=== PATIENT | female | born 1945 | race Hispanic/Latino ===

== ENCOUNTER 2021-12-27 09:40 | Emergency (ER) | payer MEDICARE, MEDICAID, SELFPAY ==
--- NOTE | ~2021-12-27 | CT_ITS ---
EXAMINATION: CT brain wo con DATE: 12/27/2021 11:03 INDICATION: Dizziness. TECHNIQUE: Computed tomography (CT) of the head was performed without intravenous contrast. The mA wa s adjusted according to patient size. Iterative reconstruction technique was employed. The dose-lengt h product was 605.33 mGy-cm. COMPARISON: None FINDINGS: There are scattered areas of low attenuation in the cerebral white matter, which is within normal limits for the patient's age. There is no intracranial hemorrhage, acute infarction, or abnorm al intracranial mass lesion. The ventricles are normal in size. The orbits are normal. There is mild mucosal thickening in the paranasal sinuses. The mastoid air cells are normal. IMPRESSION: 1. Normal aging brain. Reviewed, dictated and finalized at location A. IMPRESSION: 1. Normal aging brain.
[2021-12-27 09:43] VITALS: BP 176/89; PULSE 64; RESP 16; TEMP 36.8; O2SAT 99
--- NOTE | 2021-12-27 09:52 | ECG_ITS ---
Measurements Intervals [place] Rate: 61 P: 30 AK: 248 QRS: -8 QRSD: 102 T: 29 QT: 401 QTc: 405 Interpretive Statements SINUS RHYTHM WITH FIRST DEGREE AV BLOCK LOW QRS VOLTAGE IN PRECORDIAL LEADS ABNORMAL ECG NO PREVIOUS ECG AVAILABLE FOR COMPARISON Electronically Signed On 12-27-2021 11:48:51 CDT by Olaf Molina D.O.
[2021-12-27 10:15] LABS: Basophils Percent Auto 0.7 % (0.2-1.2); Eosinophils Absolute Auto 0.2 K/mm3 (0-0.3); Eosinophils Percent Auto 3.4 % (0-4.4); Hematocrit 38.8 % (37.0-47.0); Hemoglobin 12.1 g/dL (12.0-15.0); Immature Granulocyte Absolute 0.04 K/mm3 (0.00-0.031); Immature Granulocyte Percent A 0.7 % (0-0.5); Lymphocytes Absolute Auto 1.56 K/mm3 (0.9-3.2); Lymphocytes Percent Auto 28.3 % (18.3-44.2); Mean Corpuscular HGB Conc 31.2 g/dl (32-36); Mean Corpuscular Volume 96.3 fl (80-100); Mean Platelet Volume 9.7 fl (7.4-10.4); Monocytes Absolute Auto 0.5 K/mm3 (0.1-0.6); Monocytes Percent Auto 9.3 % (2.6-8.5); Neutrophils Absolute Auto 3.2 K/mm3 (1.3-6.7); Neutrophils Percent Auto 57.6 % (45.5-73.1); Platelet Count Result 224 k/mm3 (150-375); Red Blood Count 4.03 M/mm3 (4.2-5.4); Red Cell Distribution Width 13.7 % (11.5-14.5); White Blood Count 5.5 K/mm3 (4.5-10.0)
--- NOTE | 2021-12-27 10:33 | ED.GENADULT ---
HPI - General Adult General Chief complaint: Recheck/Abnormal Lab/Rx Stated complaint: high bp Time Seen by Provider: 12/27/21 10:17 History of Present Illness HPI narrative: 76-year-old Haitian-speaking female with a history of hypertension presents to the emergency room for evaluation of dizziness that has been present since yesterday. Patient states the dizziness is worse when moving her head. Denies any nausea or vomiting. Patient is also complaining of occasional blurred vision and ringing in her ears. Patient denies any focal neuro deficits, unilateral weakness or difficulty speaking. Patient remarks she has noticed elevated blood pressure reading for the past couple of days. No changes to her hypertension dosing. Denies chest pain, shortness of breath or abdominal pain. Related Data Home Medications Medication Instructions Recorded Confirmed allopurinol 300 mg tablet 150 mg PO DAILY 12/27/21 atorvastatin 10 mg tablet mg 12/27/21 carvedilol 25 mg tablet mg 12/27/21 telmisartan 80 tablet 12/27/21 mg-hydrochlorothiazide 25 mg tablet Allergies Allergy/AdvReac Type Severity Reaction Status Date / Time No Known Allergies Allergy Unverified 12/27/21 09:49 Review of Systems Review of Systems: CONSTITUTIONAL: Denies fever, chills, or sweats. EYES: Denies visual changes, redness, or discharge. ENT: Denies rhinorrhea, congestion, sore throat, or otalgia. CARDIOVASCULAR: Denies chest pain, palpitations, or edema. RESPIRATORY: Denies cough or dyspnea. GASTROINTESTINAL: Denies abdominal pain, nausea, vomiting, or diarrhea. GENITOURINARY: Denies dysuria or hematuria. SKIN: Denies rash or itching. MUSCULOSKELETAL: Denies back pain, joint pain, or myalgia. NEUROLOGIC: Reports dizziness PSYCHIATRIC: Denies anxiety or depression. Exam Narrative: GENERAL: Well-appearing, well-nourished, no physical limitations, and in no acute distress. HEAD: Normocephalic, atraumatic. EYES: Conjunctivae normal, PERRLA and EOMI. ENT: External nose normal, Nares clear, no rhinorrhea or epistaxis. Mucous membranes moist. Oropharynx without tonsillar hypertrophy exudate or other lesions. External ears normal, bilateral TMs normal bilaterally NECK: Supple. No meningeal signs. CHEST: Clear to auscultation. No respiratory distress. No wheezes rales or rhonchi. HEART: Regular rate and rhythm. No murmur heard. Normal peripheral pulses. ABDOMEN: Soft, suprapubic tenderness, nondistended, normal active bowel sounds. BACK: No CVA tenderness; No cervical/thoracic/lumbar tenderness, step-offs, bony abnormality; FROM EXTREMITIES: Normal range of motion. No edema. No clubbing or cyanosis SKIN: Warm, dry, no rash. No noted wounds NEURO: No focal deficits. Alert and oriented x3. MAEW. CN's II-XI intact bilaterally, normal gait PSYCH: Cooperative. Normal mood and affect. Course Vital Signs Vital signs: Vital Signs Temperature 36.8 C 12/27/21 09:43 Pulse Rate 64 12/27/21 09:43 Respiratory Rate 16 12/27/21 09:43 Blood Pressure 176/89 H 12/27/21 09:43 Pulse Oximetry 99 12/27/21 09:43 Oxygen Delivery Room Air 12/27/21 09:43 Temperature 36.8 C 12/27/21 09:43 Pulse Rate 72 12/27/21 12:03 Respiratory Rate 20 12/27/21 12:03 Blood Pressure 146/79 H 12/27/21 12:03 Pulse Oximetry 99 12/27/21 12:03 Oxygen Delivery Room Air 12/27/21 09:43 Medical Decision Making MDM Narrative Medical decision making narrative: 76-year-old female presented the emergency room with sudden onset of dizziness began yesterday. Patient was also complaining of suprapubic tenderness. CBC and CMP were reassuring. CT scan showed no acute intracranial abnormalities. Patient was given a 10 mg of hydralazine and states that her dizziness resolved. UA shows evidence of urinary tract infection. Patient was given IV Rocephin and will send home with Keflex. Because of her dizziness could be from her acute cystitis. Will have patient fol
[2021-12-27 10:37] LABS: Appearance Urine Slightly Cloudy (Clear); Bilirubin Urine Negative (Negative); Glucose Urine UA Negative (Negative); Ketones Urine Negative (Negative); Leukocyte Esterase Ur 2+ LEU/UL (Negative); Nitrate Urine Negative (Negative); Protein Urine Negative (Negative); Urobilinogen Urine 0.2 mg/dL (<2.0)
[2021-12-27 10:40] LABS: Add Urine Microscopic? YES; Blood Urine Trace-intact (Negative); Color Urine Light Yellow (Yellow)
[2021-12-27 10:41] LABS: Alanine Aminotransferase 15 U/L (6-35); Albumin Level 4.2 g/dL (3.5-5.1); Alkaline Phosphatase 65 U/L (38-126); Anion Gap 10 mmol/L (8-16); Aspartate Amino Transferase 21 U/L (14-36); Bilirubin,Total 0.5 mg/dL (0.2-1.3); Blood Urea Nitrogen 22 mg/dL (7-17); Calcium 10.3 mg/dL (8.4-10.2); Carbon Dioxide 29 mmol/L (22-30); Chloride 101 mmol/L (98-107); Estimated CRCL calculation 51 ml/min; Estimated Glomerular Filt Rate > 60; Glucose 104 mg/dL (65-110); Potassium 4.5 mmol/L (3.4-5.0); Sodium 140 mmol/L (137-145)
[2021-12-27 10:43] LABS: Bacteria Urine Trace /hpf; Mucus Urine Rare /lpf; Squamous Epithelial Cell Urine Many /hpf (Few); Transitional Epi Cells Urine Rare /hpf (None Seen); WBC Urine 21-30 /hpf
--- NOTE | 2021-12-27 10:45 | PC.NURSE ---
pt. to CT.
[2021-12-27 10:58] LABS: Troponin I < 0.012 ng/mL (0.000-0.034)
[2021-12-27] MEDS: hydrALAZINE HCL 20 MG/ML VIAL 10 MG IV PUSH (11:05)
[2021-12-27 11:23] VITALS: BP 139/75; PULSE 66; RESP 19; O2SAT 100
[2021-12-27 12:03] VITALS: BP 146/79; PULSE 72; RESP 20; O2SAT 99
== END 2021-12-27 12:41 | disposition home or self-care (01) ==
PROVIDERS: Emergency Medicine; Emergency Provider Nurse Practitioner Family; PCP Registered Nurse
DX: N39.0 Urinary tract infection, site not specified (principal); R42 Dizziness and giddiness; I10 Essential (primary) hypertension
CPT/HCPCS: 36415; 70450; 80053; 81001; 84484; 85025; 87086; 87088; 93005; 96365; 96375; 99284; J0360; J0696

== ENCOUNTER 2022-12-20 17:21 | Emergency (ER) | payer MEDICARE, MEDICAID, SELFPAY ==
[2022-12-20 17:39] VITALS: BP 117/68; PULSE 78; RESP 16; TEMP 36.9; O2SAT 96
--- NOTE | 2022-12-20 17:46 | ED.FEMALEGU ---
HPI - Female Genitourinary General Chief complaint: Urogenital-Female Stated complaint: UTI Time Seen by Provider: 12/20/22 17:48 Source: patient and RN notes reviewed Mode of arrival: ambulatory Limitations: no limitations History of Present Illness HPI Narrative: 77-year-old female presented for complaint of burning with urination and right flank pain for 3 days. Denies n/v/d/f/c. Not taking anything for symptoms. Related Data Home Medications Medication Instructions Recorded Confirmed atorvastatin 10 mg tablet 10 mg PO DAILY 12/27/21 12/20/22 carvedilol 25 mg tablet 25 mg PO DAILY 12/27/21 12/20/22 telmisartan 80 1 tablet PO DAILY 12/27/21 12/20/22 mg-hydrochlorothiazide 25 mg tablet gabapentin 100 mg capsule 100 mg PO DIRECTED 12/20/22 12/20/22 linaclotide 145 mcg capsule 145 mcg PO DIRECTED 12/20/22 12/20/22 (Linzess) montelukast 10 mg tablet 10 mg PO DAILY 12/20/22 12/20/22 Allergies Allergy/AdvReac Type Severity Reaction Status Date / Time No Known Allergies Allergy Verified 12/20/22 17:26 Review of Systems Review of Systems: CONSTITUTIONAL: Denies body aches, fever, chills, or sweats. CARDIOVASCULAR: Denies chest pain, palpitations, or edema. RESPIRATORY: Denies cough or dyspnea. GASTROINTESTINAL: Denies abdominal pain, nausea, vomiting, or diarrhea. GENITOURINARY: Reports dysuria, frequency, urgency, flank pain SKIN: Denies rash, itching, or wounds. MUSCULOSKELETAL: Denies back pain or myalgia. [facility] Past Medical History Medical History (Updated 12/20/22 @ 20:05 by Lorin Samano APRN) Hypertension Comments At time of signature, I have reviewed and agree with nursing past medical, surgical, social and family history unless otherwise noted. Please see nursing chart for further information. There is no relevant family history pertinent to the presenting complaint Exam Narrative: GENERAL: Well-appearing and in no acute distress. ENT: Mucous membranes pink and moist. NECK: Normal AROM. Supple. CHEST: No respiratory distress. Clear to auscultation. HEART: Regular rate and rhythm. ABDOMEN: Soft, nontender, nondistended, normal active bowel sounds. right CVA tenderness SKIN: Warm, dry, no rash. NEURO: No focal deficits. Alert and oriented x3. Gait steady. PSYCH: Normal affect. Course Course Emergency Course: Patient is aware of diagnosis, understands and agrees to treatment plan. Anticipatory guidance given. Patient agrees to follow-up as directed and is aware of reasons to seek care at the emergency department. Portions of this record may have been created with voice recognition software Level of Care: Express Care Visit Vital Signs Vital signs: Vital Signs Temperature 98.5 F 12/20/22 17:39 Pulse Rate 78 12/20/22 17:39 Respiratory Rate 16 12/20/22 17:39 Blood Pressure 117/68 12/20/22 17:39 Pulse Oximetry 96 12/20/22 17:39 Oxygen Delivery Room Air 12/20/22 17:39 Temperature 98.5 F 12/20/22 17:39 Pulse Rate 78 12/20/22 17:39 Respiratory Rate 16 12/20/22 17:39 Blood Pressure 117/68 12/20/22 17:39 Pulse Oximetry 96 12/20/22 17:39 Oxygen Delivery Room Air 12/20/22 17:39 Reviewed MDM - Female Genitourinary MDM Narrative Medical decision making narrative: results of urine reviewed with patient. Advised close monitoring of symptoms. Discussed physical exam findings. Advised supportive measures and signs/symptoms to go to the ER. Pt is appropriate for outpt treatment and f/u. Differential Diagnosis Differential diagnosis: Likely urinary tract infection, cystitis and other ( Nephrolithiasis, pyelonephritis) Lab Data Labs: Urine Glucose Negative Reference Range: Negative Urine Bilirubin Negative Reference Range: Negative Urine Ketone Negative
== END 2022-12-20 18:08 | disposition home or self-care (01) ==
PROVIDERS: Emergency Provider Nurse Practitioner Family; PCP Registered Nurse
DX: N39.0 Urinary tract infection, site not specified (principal); I10 Essential (primary) hypertension
CPT/HCPCS: 81003; 87077; 87086; 87088; 87186; 99213; G0463

== ENCOUNTER 2023-12-13 22:55 | Emergency (ER) | payer MEDICARE, MEDICAID, SELFPAY ==
[2023-12-13] VITALS (7 sets, daily range): BP systolic 164–174; BP diastolic 83–87; PULSE 71–76; RESP 20; TEMP 36.6; O2SAT 94–96
--- NOTE | ~2023-12-13 | XR_ITS ---
XR chest 1V Ordering provider: David De La Vega PA-C History: 78 years Female with . near syncope . Comparison: None. FINDINGS: MEDIASTINUM: The cardiac silhouette is moderately enlarged. Congestive dora. LUNGS: No effusions or pneumothorax. Opacification in the left lower lobe area which may indicate ate lectasis versus pneumonia. Clinical correlation advised. OTHER: No free air under the diaphragm. IMPRESSION: Cardiomegaly with congestive dora. Left lower lobe atelectasis versus pneumonia. Clinical correlation advised. Reviewed, dictated and finalized at location A.
--- NOTE | ~2023-12-13 | CT_ITS ---
CT abdomen pelvis wo con Ordering provider: David De La Vega PA-C History: 78 years Female with . lower abdominal pain, constipation . Comparison: None. Technique: CT abdomen and pelvis without IV and without oral contrast. Automated exposure control and iterative reconstruction technique were employed. The dose-length product was 1246.07 mGy-cm. Findings: VISUALIZED LOWER CHEST: Dependent atelectatic changes. Trace pericardial effusion. Thickening or loculated fluid seen in the left lower lobe pleura posteriorly. UPPER ABDOMINAL ORGANS: Liver: Hepatomegaly. Gallbladder: Normal. Spleen: Normal. Stomach/duodenum: Large sliding hiatus hernia Pancreas: Normal. Adrenals: Normal. Kidneys: Cysts in the left kidney midpole measuring 3.3 cm cortical calcification seen in the left ki dney lower pole. Calcification also seen in the right kidney upper pole and midpole cortex. Cyst is s een in the right kidney lower pole measuring 1.5 cm.. PELVIC ORGANS: The bladder is normal. BOWEL AND MESENTERY: Colon: No evidence of diverticulitis. Slight thickening of the sigmoid colon wall which may indicate colitis. Normal appendix. Small Bowel: Normal. No obstruction. Peritoneum/mesentery: No free air or free fluid. No mesenteric lymphadenopathy. RETROPERITONEUM: Mild atheromatous disease of the abdominal aorta. No retroperitoneal lymphadenopat hy. MUSCULOSKELETAL: Superficial soft tissues: Bilateral small fat-containing umbilical hernia. Otherwise, The superficial soft tissues are normal. Bones: Minimal anterolisthesis at the level of L4-L5. Narrowing of the disc L4-L5. Right hip severe o steoarthritic changes. Bilateral sacroiliitis. IMPRESSION: 1. Large sliding hiatus hernia. 2. Thickened wall of the sigmoid colon which may indicate colitis. 3. Hepatomegaly. 4. Constipation Reviewed, dictated and finalized at location A.
--- NOTE | 2023-12-13 23:03 | ED.DIZZY ---
HPI - Dizziness General Chief Complaint: Syncope Stated Complaint: NEAR SYNCOPE, DIAPHORETIC, PALE Source: patient Mode of arrival: ambulatory Limitations: language barrier History of Present Illness HPI Narrative: This is a 78-year-old female who is Maltese-speaking and who presents to the ED via EMS with chief complaint of near-syncope this evening. States that she stood up from a seated position this started to feel very woozy and like she might pass out. States that she did not have a full syncope and was able to lower herself to a seated position again. She continued to feel diaphoretic, nauseous and dizzy. Denies associated chest pain, shortness of breath. Denies recent illness, fevers, chills, vomiting, diarrhea. States that she has had a couple of days of constipation and some lower abdominal pain. Denies focal numbness, weakness. Reports medical history of hypertension and chronic kidney disease but nothing is listed in the chart. Denies any seizure disorder. Patient states that she has had chronic lower leg swelling and actually seems a little better today compared to normal. No history of known heart disease but has been on multiple blood pressure medications Family is here and translating. Related Data Home Medications Medication Instructions Recorded Confirmed atorvastatin 10 mg tablet 10 mg PO DAILY 12/27/21 12/20/22 carvedilol 25 mg tablet 25 mg PO DAILY 12/27/21 12/20/22 telmisartan 80 1 tablet PO DAILY 12/27/21 12/20/22 mg-hydrochlorothiazide 25 mg tablet gabapentin 100 mg capsule 100 mg PO DIRECTED 12/20/22 12/20/22 linaclotide 145 mcg capsule 145 mcg PO DIRECTED 12/20/22 12/20/22 (Linzess) montelukast 10 mg tablet 10 mg PO DAILY 12/20/22 12/20/22 Allergies Allergy/AdvReac Type Severity Reaction Status Date / Time No Known Allergies Allergy Verified 12/13/23 22:58 Review of Systems Review of Systems: All systems as dictated in HPI [facility] Past Medical History Medical History (Updated 12/14/23 @ 01:36 by David De La Vega PA-C) Hypertension Family History Family History (System 10/11/23 @ 09:14 by Yassine Su) Other Family history of arthritis Hypertension Social History Social History (System 10/11/23 @ 09:14 by Yassine Su) Smoking status: Never smoker Alcohol intake: current Exam Narrative: GENERAL: Well-appearing, well-nourished, and in no acute distress. HEAD: Normocephalic, atraumatic. EYES: PERRLA and EOMI. Bilateral ENT: Nares clear, no rhinorrhea or epistaxis. Mucous membranes moist. Oropharynx without tonsillar hypertrophy exudate or other lesions. NECK: Supple. No adenopathy or masses. CHEST: No respiratory distress. Clear to auscultation. No wheezes rales or rhonchi HEART: Regular rate and rhythm. No murmur heard. Normal peripheral pulses. ABDOMEN: Soft, mild suprapubic tenderness, nondistended, normal active bowel sounds. MSK: Normal range of motion. No edema. SKIN: Warm, dry, no rash. Facial flushing present. NEURO: Alert and oriented x4. No focal deficits. PSYCH: Normal mood and affect. Course Vital Signs Vital signs: Vital Signs Temperature 97.9 F 12/13/23 22:58 Pulse Rate 71 12/13/23 22:58 Respiratory Rate 20 12/13/23 22:58 Blood Pressure 174/83 H 12/13/23 22:58 Pulse Oximetry 96 12/13/23 22:58 Oxygen Delivery Room Air 12/13/23 22:58 Temperature 97.9 F 12/13/23 22:58 Pulse Rate 73 12/13/23 23:10 Respiratory Rate 20 12/13/23 22:58 Blood Pressure 174/83 H 12/13/23 22:58 Pulse Oximetry 96 12/13/23 22:58 Oxygen Delivery Room Air 12/13/23 22:58 MDM - Dizziness MDM Narrative Medical decision making narrative: This is a 78-year-old female with chief complaint of near syncope today after standing up. Vitals show elevated blood pressure but otherwise normal. Exam shows a little facial flushing but neurologically fully intact. There is some mild lower abdominal tenderness.
--- NOTE | 2023-12-13 23:04 | ECG_ITS ---
Test Date: 2023-12-13 23:19:56 Measurements Intervals [place] Rate: 74 P: 46 CT: 236 QRS: -21 QRSD: 94 T: 5 QT: 377 QTc: 419 Interpretive Statements SINUS RHYTHM WITH FIRST DEGREE AV BLOCK BASELINE ARTIFACT- I, II, III, AVR, AVL, AVF, V5 BORDERLINE ECG No previous ECG available for comparison Electronically Signed On 12-14-2023 06:57:40 CDT by Olaf Molina D.O.
[2023-12-13] MEDS: SODIUM CHLORIDE 0.9% IV 1,000 ML 999 ML IV CONT (23:22)
[2023-12-13] MEDS: ONDANSETRON INJ 4 MG/2 ML VIAL IV PUSH (23:23)
[2023-12-13 23:30] LABS: Basophils Absolute Auto 0.1 K/mm3 (0.0-0.1); Basophils Percent Auto 0.8 % (0.2-1.2); Eosinophils Absolute Auto 0.2 K/mm3 (0-0.3); Eosinophils Percent Auto 2.5 % (0-4.4); Hematocrit 38.2 % (37.0-47.0); Hemoglobin 11.7 g/dL (12.0-15.0); Immature Granulocyte Absolute 0.05 K/mm3 (0.00-0.031); Immature Granulocyte Percent A 0.7 % (0-0.5); Lymphocytes Absolute Auto 1.52 K/mm3 (0.9-3.2); Lymphocytes Percent Auto 20.3 % (18.3-44.2); Mean Corpuscular HGB Conc 30.6 g/dl (32-36); Mean Corpuscular Hemoglobin 27.5 pg (26-34); Mean Corpuscular Volume 89.7 fl (80-100); Mean Platelet Volume 9.6 fl (7.4-10.4); Monocytes Absolute Auto 0.9 K/mm3 (0.1-0.6); Monocytes Percent Auto 11.4 % (2.6-8.5); Neutrophils Absolute Auto 4.8 K/mm3 (1.3-6.7); Neutrophils Percent Auto 64.3 % (45.5-73.1); Platelet Count Result 229 k/mm3 (150-375); Red Blood Count 4.26 M/mm3 (4.2-5.4); Red Cell Distribution Width 14.3 % (11.5-14.5); White Blood Count 7.5 K/mm3 (4.5-10.0)
[2023-12-13 23:42] LABS: Prothrombin Time 13.3 Seconds (11.1-14.7)
[2023-12-13 23:44] LABS: Lactic Acid Reflex 1.5 mmol/L (0.7-2.0)
[2023-12-13 23:45] LABS: Alanine Aminotransferase 13 U/L (6-35); Albumin Level 4.1 g/dL (3.5-5.1); Alkaline Phosphatase 82 U/L (38-126); Anion Gap 10 mmol/L (4-12); Aspartate Amino Transferase 18 U/L (14-36); Bilirubin,Total 0.5 mg/dL (0.2-1.3); Blood Urea Nitrogen 32 mg/dL (7-17); Calcium 9.9 mg/dL (8.4-10.2); Carbon Dioxide 25 mmol/L (22-30); Chloride 101 mmol/L (98-107); Estimated CRCL calculation 39 ml/min; Estimated Glomerular Filt Rate 40; Glucose 113 mg/dL (65-110); Magnesium 1.8 mg/dL (1.6-2.3); Potassium 4.1 mmol/L (3.4-5.0); Sodium 136 mmol/L (137-145)
[2023-12-13 23:57] LABS: NT Pro B Type Natriuretic Pept 37 pg/mL (19.9-100); Troponin I < 0.012 ng/mL (0.000-0.034)
[2023-12-14] VITALS (12 sets, daily range): BP systolic 120–127; BP diastolic 70–76; PULSE 64–86; RESP 17–22; TEMP 36.6; O2SAT 93–98
[2023-12-14 01:19] LABS: Add Urine Microscopic? YES; Appearance Urine Clear (Clear); Bacteria Urine 4+ /hpf; Bilirubin Urine Negative (Negative); Blood Urine Negative (Negative); Color Urine Yellow (Yellow); Glucose Urine UA Negative (Negative); Ketones Urine Trace mg/dL (Negative); Leukocyte Esterase Ur 1+ LEU/UL (Negative); Nitrate Urine Positive (Negative); Non Pathogenic Casts 0-2; Protein Urine Negative (Negative); RBC Urine 0-2 /hpf (0-2); Specific Grav Ur 1.019 (1.001-1.035); Squamous Epithelial Cell Urine None Seen /hpf (Few); pH Urine 5.5 (5.0-9.0)
== END 2023-12-14 06:12 | disposition home or self-care (01) ==
PROVIDERS: Emergency Provider Physician Assistant; PCP Registered Nurse
DX: N39.0 Urinary tract infection, site not specified (principal); E86.0 Dehydration; R55 Syncope and collapse; N18.9 Chronic kidney disease, unspecified; I12.9 Hypertensive chronic kidney disease with stage 1 through stage 4 chronic kidney disease, or unspecified chronic kidney disease; Z79.899 Other long term (current) drug therapy; I44.0 Atrioventricular block, first degree; K44.9 Diaphragmatic hernia without obstruction or gangrene; R16.0 Hepatomegaly, not elsewhere classified; K59.00 Constipation, unspecified; R93.3 Abnormal findings on diagnostic imaging of other parts of digestive tract
CPT/HCPCS: 36415; 71045; 74176; 80053; 81001; 83605; 83735; 83880; 84484; 85025; 85610; 85730; 87077; 87086; 87088; 87186; 93005; 96361; 96365; 96375; 99284; J0696; J2405; J7030

== ENCOUNTER 2024-11-26 10:46 | Emergency (ER) | payer MEDICARE, MEDICAID, SELFPAY ==
--- NOTE | ~2024-11-26 | XR_ITS ---
XR chest 2V 11/26/2024 11:32 Indication: Lower extremity edema Procedure: 2 views of the chest Comparison: 12/13/2023 and 10/15/2015 Findings: Cardiomegaly. No focal air space disease, pulmonary edema, pleural effusion or suspected pneumothorax. Impression: 1: No acute cardiopulmonary disease. Reviewed, dictated and finalized at location O. Impression: 1: No acute cardiopulmonary disease.
[2024-11-26 11:10] VITALS: BP 139/87; PULSE 64; RESP 18; TEMP 36.7; O2SAT 95
--- OUTSIDE RECORDS SUMMARY | 2024-11-26 11:14 | XMS_ITS | Encounter Summary ---
Author Organization [facility] Address [address] [place] [address] Care Team Providers Care Administrative Associate Name Role Phone Unavailable Primary Care Provider Unavailabl e Encounter Details Date Type Department Care Team (Late st Contact Info) Description 01/13/2022 Lab Requisition [facility] [address] [place] [address] Roberto Houser MD [address] [place] [address] Social History Tobacco Use Types Packs/Day Years Used Date Smoking Tobacco: Never Assessed Comments Unknown Sex and Gender Information Value Date Recorded Sex Assigned at Not on file Legal Sex Female 3:10 PM CDT Gender Identity Not on file Sexual Orientation Not on file documented as of this encounter Plan of Treatment Not on file documented as of this encounter Procedures Procedure Name Priority Date/Time Associated Diagnosis Comments DERMATOPATHOLOGY Routine 01/11/2022 12:0 0 AM CDT documented in this encounter Results * DERMATOPATHOLOGY (01/11/2022 12:00 AM CDT) Case Report Dermatopathology Report Case: [id number] Authorizing Provider: Roberto Houser MD Collected: 01/11/2022 12:00 AM Ordering Location: [facility] Received: 01/13/2022 06:30 AM Pathologist: Lachelle Montez MD Specimen: Skin, left hand 3:29 PM CDT DERMATOPATHOLOGY LABORATORY Final Diagnosis Specimen A. SKIN, left hand: BASAL CELL CARCINOMA, NODULAR TYPE (C44.619) 2 3:29 PM CDT DERMATOPATHOLOGY LABORATORY at 1529 CDT Clinical History [facility]. Path#[id number] 2 3:29 PM CDT DERMATOPATHOLOGY LABORATORY Gross Description Specimen A: Received is one formalin filled container labeled with the patient's name and designated left hand. The specimen consists of a shave biopsy measuring 10x7x2,10x7x1, and 8x4x1 mm. Jar 0. 3:29 PM CDT DERMATOPATHOLOGY LABORATORY Microscopic Description Specimen A. SKIN, left hand: Within the dermis there are aggregates of basaloid cells with a high nuclear to cytoplasmic ratio and peripheral palisading. 2 3:29 PM CDT DERMATOPATHOLOGY LABORATORY Disclaimer An external and internal positive and negative controls are appropriate for the histochemical, immunohistochemical and immunofluorescence stain(s) in this case (if any), except where stated explicitly. The performance characteristics of the stain(s) cited in this report were developed and its performance characteristic determined by the Dermatopathology Laboratory at [facility], directed by Dr. Eric Vega. These tests need not be, and therefore are not, approved by the [place] Food and Drug Administration. The tests are used for clinical purposes. Billing Codes Specimen Charges Stain Charges 25109 1 2 3:29 PM CDT DERMATOPATHOLOGY LABORATORY Embedded Images 2 3:29 PM CDT DERMATOPATHOLOGY LABORATORY Pathology/Cytolog y TISSUE SPECIMEN FROM SKIN / Unknown 01/11/2022 01/13/2022 6:30 AM CDT us Roberto Houser MD LAB - PATHOLOGY/CYTOLOGY ORDER PATRIA Final Result DERMATOPATHOLOGY LABORATORY [facility] - Department of Dermatology [address] [place] [address], [facility] [phone] documented in this encounter Visit Diagnoses Not on filedocumented in this encounter
--- OUTSIDE RECORDS SUMMARY | 2024-11-26 11:14 | XMS_ITS | Clinical Summary ---
Author Organization [facility] Address [address] [place] [address] Care Team Providers Care Licensed Journeyman Electrician Name Role Phone Anamaria HOLMAN MD PhD, Clinton Wise Unavailable Kumar Lindsey MD Unavailable + Negin Curiel NP Primary Care Provider [phone] Allergies No known active allergies Medications atorvastatin (LIPITOR) 10 mg tablet Take 1 tablet (10 mg total) by mouth daily 03/13/2024 Active carvediloL (COREG) 25 mg tablet Take 1 tablet (25 mg total) by mouth 2 (two) times a day 03/13/2024 Active furosemide (LASIX) 20 mg tablet Take 1 tablet (20 mg total) by mouth daily Active telmisartan (MICARDIS) 80 mg tablet Take 1 tablet (80 mg total) by mouth nightly Active Active Problems Problem Noted Date Diagnosed Date Hypothyroidism 10/02/2024 Hypertensive disorder 10/02/2024 Osteoarthritis 10/02/2024 Varicose veins of other specified sites 10/03/19 25 Carotid body tumor 10/02/2024 Lumbosacral radiculopathy 11/28/2023 History of colonic polyps 04/17/2022 Chronic kidney disease 07/14/2021 Diastolic dysfunction 07/14/2021 Overview (10/02/2024): GRADE 1 per her depilatory painter in [place] Jessica Zimmer last seen 05/31/2021 Prediabetes 11/25/2020 Vitamin D deficiency 01/07/2019 Mixed hyperlipidemia 06/10/2018 Chronic constipation 06/20/2017 Encounters Date Type Department Care Team Description 10/13/2024 Telephone [facility] Oncology [facility] Floor 8 [place] [address] Demetrice Burns 10/06/2024 1:[address] [facility] Advanced Medicine Radiation Oncology [address] [facility] [place] [address] Clinton Conrad III, MD PhD Carotid body tumor (HCC) 10/02/2024 Documentation [facility] Otolaryngology Head-Neck Division [address] [place] [address] Floor 5 [place] [address] Kumar Lindsey MD 10/01/[address] [facility] Advanced Medicine Radiation Oncology [address] [place] [address] Clinton Conrad III, MD PhD 09/29/2024 Telephone [facility] Radiation Oncology [address] [place] [address] Kala, Physician 09/25/2024 2:30 PM CDT Lab [facility] - Lab Collection [address] [place] [address] Floor 5 [place] [address] Carotid body tumor (HCC) 09/25/2024 12:20 PM CDT Office Visit [facility] Otolaryngology Head-Neck Division [address] [place] [address] Floor 5 [place] [address] Kumar Lindsey MD Carotid body tumor (HCC) 09/25/2024 10:04 AM CDT - 09/25/2024 11:59 PM CDT Hospital Encounter [facility] - [facility] [address] [facility] Floor 8 [place] [address] Carotid body tumor (HCC) Discharge Disposition: Discharge to home or self care 09/25/2024 10:04 AM CDT - 09/25/2024 11:59 PM CDT Hospital Encounter [facility] - PET [address] [facility] Floor 8 [place] [address] Discharge Disposition: Discharge to home or self care 09/25/2024 9:15 AM CDT - 09/25/2024 11:59 PM CDT Hospital Encounter [facility] - PET [address] [facility] Floor 8 [place] [address] Carotid body tumor (HCC) Discharge Disposition: Discharge to home or self care 09/25/2024 Orders Only [facility] Otolaryngology Head-Neck Division [address] [place] [address] 5 [place] [address] Kumar Lindsey MD Carotid body tumor (HCC) (Primary Dx) 09/16/2024 Telephone [facility] Otolaryngology Head-Neck Division [address] [place] [address] 5 [place] [id number] Natalie Ruiz RN 09/12/2024 Orders Only [facility] Otolaryngology Head-Neck Division [address] [place] [address] 5 [place] [address] Kumar Lindsey MD Carotid body tumor (HCC) (Primary Dx) 09/10/2024 Telephone [facility] Otolaryngology [facility] [place] [address] Nayeli Jaimes, 09/03/2024 Telephone [facility] Services [address] [facility] [address] [place] [address] Micki Lopez, AZALIA from Last 3 Months Surgical History Surgery Date Site/Laterality Comments HYSTERECTOMY CYST REMOVAL Medical History Medical History Date Comments Arthritis Dizziness High blood pressure Kidney disease Social History Tobacco Use Types Packs/Day Years Used Date Smoking Tobacco: Never Smokeless Tobacco: Never Tobacco Cessation:Counseling Given: Not Answered Comments Unknown Sex and Gender Information Value Date Recorded Sex Assigned at Not on file 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 Gender Identity Not on file Sexual Orientation Not on file Obstetrics History Last Filed Vital Signs Vital Sign Reading Time Taken Comments Blood Pressure 124/80 10/06/2024 1:45 PM CDT Pulse 72 10/06/2024 1:45 PM CDT Temperature - - Respiratory Rate 16 10/06/2024 1:45 PM CDT Oxygen Saturation 94% 10/06/2024 1:45 PM CDT Inhaled Oxygen Concentration - - Weight 95.3 kg (210 lb) 10/06/2024 1:45 PM CDT Height 160 cm (5' 3) 10/06/2024 1:45 PM CDT Body Mass Index 37.2 10/06/2024 1:45 PM CDT Plan of Treatment Health Maintenance Due Date Last Done Comments Depression Screening 1945 Hepatitis C Screening 1945 Osteoporosis Screening-Bone Density Scan 1945 DTaP/Tdap/Td Vaccine (1 - Tdap) 1957 Hepatitis B Screening 1964 Pneumococcal vaccine 65+ (1 of 1 - PCV) 1996 Zoster Vaccine (1 of 2) 1996 Well Visit 65+ 07/18/2011 Influenza Vaccine (#1) 2024 Fall Risk Assessment 10/06/2025 10/06/2024 Procedures Procedure Name Priority Date/Time Associated Diagnosis Comments MISCELLANEOUS TEST SENDOUT CHEMISTRY Routine 09/25/2024 7:[address] SOFT TISSUE NECK W CONTRAST Schedule Routine, Read Routine (OP Routine) 09/25/2024 12:06 PM CDT Carotid body tumor (HCC) PET/CT GA-68 DOTATATE SKULL TO THIGH Schedule Routine, Read Routine (OP Routine) 09/25/2024 11:55 AM CDT Carotid body tumor (HCC) from Last 3 Months Results * Miscellaneous Test Sendout Chemistry (09/25/2024 7:51 PM CDT) Test name Catecholamin es, Serum Result 1 See Comment BIANKA JEAN Comment:Credited, test no lo nger available. Blood 09/25/2024 7:51 PM CDT 09/25/2024 9:04 PM CDT Kumar Lindsey MD LAB BLOOD ORDERABL ES Final Result [facility] Department [place] [address] * CT Neck Soft Tissue W Contrast (09/25/2024 12:06 PM CDT) Anatomical Region Laterality Modality Head and Neck N/A Computed Tomogra phy 09/25/2024 3:39 PM CDT Impressions 09/25/2024 4:25 PM CDT 1. Multiple avidly enhancing lesions including enhancing mass centered in the left carotid space splaying internal and external carotid arteries with cranial extension in the carotid space abutting jugular foramen as well as mass effect on the left jugular vein without thrombosis or occlusion. 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 2. Additional heterogeneously enhancing superficial left parotid gland and AP window lesions likely reflect additional neuroendocrine tumors. 3. Homogeneously enhancing prevertebral space lesion with tail extending to the posterior left thyroid gland favors ectopic thyroid tissue rather than neuroendocrine tumor. Dictated by: Jb Haddad M.D. The radiology attending physician has personally reviewed this study, and had reviewed and/or edited this written report and agrees with it. Electronically signed by: Jonathan Edwards MD Narrative 09/25/2024 4:25 PM CDT EXAMINATION: CT of the neck with contrast HISTORY: 79 years-old Female with carotid body tumor. TECHNIQUE: CT of the neck was performed according to the standard protocol with intravenous contrast. Contrast information: 67 mL Optiray-350 IV COMPARISON: Same day pet Dotatate. FINDINGS: There is a homogeneously enhancing mass centered in the left carotid space with splaying of the internal and external carotid arteries at the level of the carotid bifurcation with mass effect on the left jugular vein without occlusion. The lesion measures 4.2 x 3.6 x 3.9 cm and extends cranially through the carotid space abutting the jugular foramen. There are additional enhancing lesions including superficial left parotid gland measuring 1.1 x 0.9 x 1.3 cm, prevertebral space measuring 1.0 x 0.9 x 2.5 cm, isointense to the thyroid gland with extension to the posterior left thyroid and left AP window heterogeneously enhancing lesion measuring 3.8 x 2.3 x 2.8 cm. Scattered subcentimeter lymph nodes are seen in the neck. None are pathologically enlarged or abnormally enhancing. Dystrophic calcifications of the calcaneus and adenoid tonsils. The muscles of the neck are normal. Fascial planes are preserved and the deep spaces of the neck are normal. The visualized airway is widely patent. Limited views of the brain including the cerebellum and brainstem are normal. The limited view of the [place] is unremarkable. The visualized portions of the orbits are normal. Mild cervical spondylosis without high-grade spinal canal stenosis. Varying degrees of facet arthropathy and uncovertebral hypertrophy with associated neuroforaminal narrowing. Trace left pleural effusion. Old granulomatous disease. Procedure Note Jonathan Edwards MD - 09/25/2024 EXAMINATION: CT of the neck with contrast HISTORY: 79 years-old Female with carotid body tumor. TECHNIQUE: CT of the neck was performed according to the standard protocol with intravenous contrast. Contrast information: 67 mL Optiray-350 IV COMPARISON: Same day pet Dotatate. FINDINGS: There is a homogeneously enhancing mass centered in the left carotid space with splaying of the internal and external carotid arteries at the level of the carotid bifurcation with mass effect on the left jugular vein without occlusion. The lesion measures 4.2 x 3.6 x 3.9 cm and extends cranially through the carotid space abutting the jugular foramen. There are additional enhancing lesions including superficial left parotid gland measuring 1.1 x 0.9 x 1.3 cm, prevertebral space measuring 1.0 x 0.9 x 2.5 cm, isointense to the thyroid gland with extension to the posterior left thyroid and left AP window heterogeneously enhancing lesion measuring 3.8 x 2.3 x 2.8 cm. Scattered subcentimeter lymph nodes are seen in the neck. None are pathologically enlarged or abnormally enhancing. Dystrophic calcifications of the calcaneus and adenoid tonsils. The muscles of the neck are normal. Fascial planes are preserved and the deep spaces of the neck are normal. The visualized airway is widely patent. Limited views of the brain including the cerebellum and brainstem are normal. The limited view of the [place] is unremarkable. The visualized portions of the orbits are normal. Mild cervical spondylosis without high-grade spinal canal stenosis. Varying degrees of facet arthropathy and uncovertebral hypertrophy with associated neuroforaminal narrowing. Trace left pleural effusion. Old granulomatous disease. IMPRESSION: 1. Multiple avidly enhancing lesions including enhancing mass centered in the left carotid space splaying internal and external carotid arteries with cranial extension in the carotid space abutting jugular foramen as well as mass effect on the left jugular vein without thrombosis or occlusion. 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 2. Additional heterogeneously enhancing superficial left parotid gland and AP window lesions likely reflect additional neuroendocrine tumors. 3. Homogeneously enhancing prevertebral space lesion with tail extending to the posterior left thyroid gland favors ectopic thyroid tissue rather than neuroendocrine tumor. Dictated by: Jb Haddad M.D. The radiology attending physician has personally reviewed this study, and had reviewed and/or edited this written report and agrees with it. Electronically signed by: Jonathan Edwards MD Kumar Lindsey MD IMG CT PROCEDURES Final Result * PET/CT Dotatate Skull to Thigh (09/25/2024 11:55 AM CDT) Anatomical Region Laterality Modality Positron Emissio n Tomography (PET) 09/25/2024 2:40 PM CDT Impressions 09/25/2024 5:35 PM CDT 1. Intensely avid 3.9 cm left carotid body mass compatible with reported primary malignancy. 2. Partially necrotic moderately avid 3.4 cm aorticopulmonary window lymph node suspicious for metastasis. 3. Mildly avid left perihilar pulmonary nodule may represent an additional metastasis or atelectasis. Recommend dedicated CT chest with contrast for further evaluation. 4. No evidence of metastasis below the diaphragm. Modified Krenning score = 4 Dictated by: Kofi Abad MD The radiology attending physician has personally reviewed this study, and had reviewed and/or edited this written report and agrees with it. Electronically signed by: Elisa Baker M.D. Narrative 09/25/2024 5:35 PM CDT EXAMINATION: Cu-64 DOTATATE -PET/CT IMAGING DATE OF STUDY: 09/25/2024 SCANNER: [facility] [employer] (SQ1). This is a high-resolution scanner, which can result in higher SUVs (and even detection of previously unrecognized small lesions) compared to older scanners. RADIOPHARMACEUTICAL: 4.69 mCi Cu-64 Dotatate i.v. Injection site: Right antecubital fossa HISTORY: 79-year-old female with reported left carotid body tumor. Patient recently noticed a nontender mass in 2022, and has not been treated. The study is requested for initial staging. Initial treatment strategy. TECHNIQUE: After intravenous administration of the radiopharmaceutical, noncontrast CT images were obtained for attenuation correction and for fusion with emission PET images to allow for anatomical localization of PET findings. Emission PET images were then obtained. The study was interpreted on the [employer] workstation. The total scanned area was skull vertex to proximal thighs. Images of the body were obtained starting 60 minutes after injection of tracer. REFERENCE TISSUE MAXIMUM SUVs: Liver 10.2 Spleen 33.3 Focal Dotatate tracer uptake (visually classified on MIP images) in reference lesions on PET is graded as follows (Modified Krenning Score): 0. No uptake (Negative) 1. Uptake < liver (Minimal) 2. Uptake = liver (Mild) 3. Uptake > liver, but < spleen (Moderate) 4. Uptake > spleen (Intense) COMPARISON: Same day CT neck FINDINGS: Arising near the carotid bifurcation on the left, there is a 3.9 x 3.3 cm intensely avid mass which abuts the internal jugular vein, and causes mild mass effect upon the oropharyngeal airway. Moderately avid 3.4 x 2.1 cm aorticopulmonary window lymph node on axial image 114. There are several pulmonary nodules in the left lung. One near the left hilum (image 124) is mildly tracer avid. There is physiologic uptake within the pituitary gland, parotid and submandibular glands, stomach, small and large bowel, and bilateral kidneys. Additional CT findings: Moderate-sized hiatal hernia. Coronary artery and thoracoabdominal aortic calcifications. Multiple bilateral cysts. Colonic diverticulosis. As is severe right hip osteoarthritis. Degenerative changes in thoracolumbar spine. Small fat-containing direct left inguinal hernia. Procedure Note Elisa Baker MD - 09/25/2024 EXAMINATION: Cu-64 DOTATATE -PET/CT IMAGING DATE OF STUDY: 09/25/2024 SCANNER: [facility] [employer] (SQ1). This is a high-resolution scanner, which can result in higher SUVs (and even detection of previously unrecognized small lesions) compared to older scanners. RADIOPHARMACEUTICAL: 4.69 mCi Cu-64 Dotatate i.v. Injection site: Right antecubital fossa HISTORY: 79-year-old female with reported left carotid body tumor. Patient recently noticed a nontender mass in 2022, and has not been treated. The study is requested for initial staging. Initial treatment strategy. TECHNIQUE: After intravenous administration of the radiopharmaceutical, noncontrast CT images were obtained for attenuation correction and for fusion with emission PET images to allow for anatomical localization of PET findings. Emission PET images were then obtained. The study was interpreted on the [employer] workstation. The total scanned area was skull vertex to proximal thighs. Images of the body were obtained starting 60 minutes after injection of tracer. REFERENCE TISSUE MAXIMUM SUVs: Liver 10.2 Spleen 33.3 Focal Dotatate tracer uptake (visually classified on MIP images) in reference lesions on PET is graded as follows (Modified Krenning Score): 0. No uptake (Negative) 1. Uptake < liver (Minimal) 2. Uptake = liver (Mild) 3. Uptake > liver, but < spleen (Moderate) 4. Uptake > spleen (Intense) COMPARISON: Same day CT neck FINDINGS: Arising near the carotid bifurcation on the left, there is a 3.9 x 3.3 cm intensely avid mass which abuts the internal jugular vein, and causes mild mass effect upon the oropharyngeal airway. Moderately avid 3.4 x 2.1 cm aorticopulmonary window lymph node on axial image 114. There are several pulmonary nodules in the left lung. One near the left hilum (image 124) is mildly tracer avid. There is physiologic uptake within the pituitary gland, parotid and submandibular glands, stomach, small and large bowel, and bilateral kidneys. Additional CT findings: Moderate-sized hiatal hernia. Coronary artery and thoracoabdominal aortic calcifications. Multiple bilateral cysts. Colonic diverticulosis. As is severe right hip osteoarthritis. Degenerative changes in thoracolumbar spine. Small fat-containing direct left inguinal hernia. IMPRESSION: 1. Intensely avid 3.9 cm left carotid body mass compatible with reported primary malignancy. 2. Partially necrotic moderately avid 3.4 cm aorticopulmonary window lymph node suspicious for metastasis. 3. Mildly avid left perihilar pulmonary nodule may represent an additional metastasis or atelectasis. Recommend dedicated CT chest with contrast for further evaluation. 4. No evidence of metastasis below the diaphragm. Modified Krenning score = 4 Dictated by: Kofi Abad MD The radiology attending physician has personally reviewed this study, and had reviewed and/or edited this written report and agrees with it. Electronically signed by: Elisa Baker M.D. us Kumar Lindsey MD IMG PET PROCEDURES Final Result from Last 3 Months Insurance [facility] MEDICARE ADVANTAGE IDAL [facility] MEDICARE ADVANTAGE Care Teams Licensed Journeyman Electrician Relationship Specialty Start Date End Date Negin Curiel NP [address] [place] [address] PCP - General Nurse Practitioner 10/06/24 Clinton Conrad III, MD PhD [address] [facility] [place] [address] Radiation Oncologist Radiation Oncology 10/02/24 Kumar Lindsey MD [address] [facility] DEPT [address] [address] Consulting Physician Otolaryngology 10/02/24
--- OUTSIDE RECORDS SUMMARY | 2024-11-26 11:14 | XMS_ITS | Encounter Summary ---
Author Organization [facility] Address [address] [place] [address] Care Team Providers Care Aboriginal Liaison Officer Name Role Phone Unavailable Primary Care Provider Unavailabl e Encounter Details Date Type Department Care Team (Late st Contact Info) Description 08/25/2021 Lab Requisition [facility] DermPath Lab [address] [place] [address] Roberto Houser MD [address] [place] [address] Social History Tobacco Use Types Packs/Day Years [...] Priority Date/Time Associated Diagnosis Comments DERMATOPATHOLOGY Routine 08/25/2021 12:0 0 AM CDT documented in this encounter Results * DERMATOPATHOLOGY (08/25/2021 12:00 AM CDT) Case Report Dermatopathology Report Case: [id number] Authorizing Provider: Roberto Houser MD Collected: 08/25/2021 12:00 AM Ordering Location: [facility] DermPath Lab Received: 08/25/2021 03:35 PM Pathologist: Zena Gifford MD Specimen: Skin, right ala 1:22 PM CDT DERMATOPATHOLOGY LABORATORY Final Diagnosis Specimen A. SKIN, right ala: BASAL CELL CARCINOMA, NODULAR TYPE (C44.311) 2 1:22 PM CDT DERMATOPATHOLOGY LABORATORY at 1322 CDT Clinical History [facility]. Path# [id number] 2 1:22 PM CDT DERMATOPATHOLOGY LABORATORY Gross Description Specimen A: Received is one formalin filled container labeled with the patient's name and designated right ala. The specimen consists of a shave biopsy measuring [id number]. Jar 0. 2 1:22 PM CDT DERMATOPATHOLOGY LABORATORY Microscopic Description Specimen A. SKIN, right ala: Within the dermis there are aggregates of basaloid cells with a high nuclear to cytoplasmic ratio and peripheral palisading. 2 1:22 PM CDT DERMATOPATHOLOGY LABORATORY Disclaimer An external and internal positive and negative controls are appropriate for the histochemical, immunohistochemical and immunofluorescence stain(s) in this case (if any), except where stated explicitly. The performance characteristics of the stain(s) cited in this report were developed and its performance characteristic determined by the Dermatopathology Laboratory at [facility], directed by Dr. Eric Vega. These tests need not be, and therefore are not, approved by the [place] Food and Drug Administration. The tests are used for clinical purposes. Billing Codes Specimen Charges Stain Charges 31555 1 2 1:22 PM CDT DERMATOPATHOLOGY LABORATORY Embedded Images 2 1:22 PM CDT DERMATOPATHOLOGY LABORATORY Pathology/Cytolog y TISSUE SPECIMEN FROM SKIN / Unknown 08/25/2021 08/25/2021 3:35 PM CDT us Roberto Houser MD LAB - PATHOLOGY/CYTOLOGY ORDER PATRIA Final Result DERMATOPATHOLOGY LABORATORY [facility] - Department of Dermatology [address], [address] Floor [address] [phone] documented in this encounter Visit Diagnoses Not on filedocumented in this encounter
--- OUTSIDE RECORDS SUMMARY | 2024-11-26 11:14 | XMS_ITS | Clinical Summary ---
Author Organization [facility] Identify Address [address] [place] [address] Care Team Providers Care Pipeline Controller Name Role Phone Unavailable Primary Care Provider Unavailabl e Source Comments [facility] Identify,non-owned Affiliates and Associated Physician Practices is amultiple site organization consisting of ambulatory clinics and hospital sitesin [place], [place], [place] and [place]. This disclosure is being madepursuant to the Care Everywhere program and may not contain all information available regarding this patient. Last updated 17.[facility] Identify Social History Tobacco Use Types Packs/Day Years Used Date Smoking Tobacco: Never Assessed Comments Unknown Sex and Gender Information Value Date Recorded Sex Assigned at Not on file Legal Sex Female 3:10 PM CDT Gender Identity Not on file Sexual Orientation Not on file Plan of Treatment Health Maintenance Due Date Last Done Comments BONE DENSITY TESTING 1945 MEDICARE AWV 12 MONTHS 1945 HEPATITIS C SCREENING 07/12/1964 DTAP/TDAP/TD VACCINES (1 - Tdap) 1965 PNEUMOCOCCAL VACCINE 50+ (1 of 1 - PCV) 1996 ZOSTER VACCINE (1 of 2) 1996 Respiratory Syncytial Virus (RSV) Vaccine Pt: or over 60 yrs (1 - 1-dose 75+ series) 2021 COVID-19 VACCINE ( - 2023-2 5 season) 2023 DEPRESSION SCREENING 04/02/2024 INFLUENZA VACCINE (#1) 2024 HEPATITIS B VACCINE Aged Out No longe r eligible based on patient's age to complete this topic HIB VACCINE Aged Out No longer eligi ble based on patient's age to complete this topic HPV VACCINE Aged Out No longer eligi ble based on patient's age to complete this topic MENINGOCOCCAL (Group B) VACC INE SHARED DECISION-MAKING Aged Out No longer eligibl e based on patient's age to complete this topic MENINGOCOCCAL GROUPS A/C/Y/W VACCINE Aged Out No longer eligible b ased on patient's age to complete this topic Insurance MEDICARE
[2024-11-26 11:54] LABS: Hematocrit 41.6 % (37.0-47.0); Hemoglobin 12.7 g/dL (12.0-15.0); Immature Granulocyte Percent A 0.5 % (0-0.5); Lymphocytes Absolute Auto 1.66 K/mm3 (0.9-3.2); Mean Corpuscular HGB Conc 30.5 g/dl (32-36); Mean Corpuscular Hemoglobin 28.5 pg (26-34); Mean Corpuscular Volume 93.5 fl (80-100); Nucleated Red Blood Cells Absolute Auto 0.000 K/mm3 (0.0-0.012); Nucleated Red Blood Cells Perc 0.0 % (0.0-0.2); Platelet Count Result 215 k/mm3 (150-375); Red Blood Count 4.45 M/mm3 (4.2-5.4); White Blood Count 6.4 K/mm3 (4.5-10.0)
--- OUTSIDE RECORDS SUMMARY | 2024-11-26 12:04 | XMS_ITS | Clinical Summary ---
Author Organization [facility] Address [address] [place] [address] Care Team Providers Care Field Service Technician Name Role Phone Anamaria HOLMAN MD PhD, Clinton Wies Unavailable Kumar Lindsey MD Unavailable + Negin Curiel NP Primary Care Provider [phone] Allergies No known active allergies Medications atorvastatin [...] 07/14/2021 Overview (10/02/2024): GRADE 1 per her business continuity consultant in [place] Jessica Zimmer last seen 05/31/2021 Prediabetes 11/25/2020 Vitamin D deficiency 01/07/2019 Mixed hyperlipidemia 06/10/2018 Chronic constipation 06/20/2017 Encounters Date Type Department Care Team Description 10/13/2024 Telephone [facility] On[facility] Floor 8 [place] [address] Demetrice Burns 10/06/2024 1:00 PM CDT Consult [facility] Advanced Medicine Radiation Oncology [address] [facility] [place] [address] Clinton Conrad III, MD PhD Carotid body tumor (HCC) 10/02/2024 Documentation [facility] Otolaryngology Head-Neck Division [address] [place] [address] Floor 5 [place] [address] Kumar Lindsey MD 10/01/2024 Telephone [facility] Advanced Medicine Radiation Oncology [address] [place] [address] Clinton Conrad III, MD PhD 09/29/2024 Telephone [facility] Radiation Oncology [address] [place] [address] Kala, Physician 09/25/2024 2:30 PM CDT Lab [facility] - Lab Collection [address] [place] [address] Floor 5 [place] [address] Carotid body tumor (HCC) 09/25/2024 12:20 PM CDT Office Visit [facility] Otolaryngology Head-Neck Division [address] [place] [address] Floor 5 [place] [address] Kumar Lindsey MD Carotid body tumor (HCC) 09/25/2024 10:04 AM CDT - 09/25/2024 11:59 PM CDT Hospital Encounter [facility] [place] - [place] [address] [facility] Floor 8 [place] [address] Carotid body tumor (HCC) Discharge Disposition: Discharge to home or self care 09/25/2024 10:04 AM CDT - 09/25/2024 11:59 PM CDT Hospital Encounter [facility] [place] - PET [address] [facility] Floor 8 [place] [address] Discharge Disposition: Discharge to home or self care 09/25/2024 9:15 AM CDT - 09/25/2024 11:59 PM CDT Hospital Encounter [facility] - PET [address] [facility] Floor 8 [place] [address] Carotid body tumor (HCC) Discharge Disposition: Discharge to home or self care 09/25/2024 Orders Only [facility] Otolaryngology Head-Neck Division [address] [place] [address] 5 [place] [address] Kumar Lindsey MD Carotid body tumor (HCC) (Primary Dx) 09/16/2024 Telephone [facility] Otolaryngology Head-Neck Division [address] [place] [address] 5 [place] [id number] Natalie Ruiz RN 09/12/2024 Orders Only [facility] Otolaryngology Head-Neck Division [address] [place] [address] 5 [place] [address] Kumar Lindsey MD Carotid body tumor (HCC) (Primary Dx) 09/10/2024 Telephone [facility] Otolaryngology [facility] [place] [address] Nayeli Jaimes, 09/03/2024 Telephone [facility] Acute [facility] Critical Care Services [address] [facility] [address] [place] [address] Micki Lopez, AZALIA from Last 3 Months [...] on file 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 The limited view of the [place] is unremarkable. The visualized portions [...] are normal. The limited view of the [place] is unremarkable. The visualized portions [...] -PET/CT IMAGING DATE OF STUDY: 09/25/2024 SCANNER: [facility] [employer] (SQ1). This is a high-resolution scanner, which [...] obtained. The study was interpreted on the [employer] workstation. The total scanned area was skull [...] obtained. The study was interpreted on the [employer] workstation. The total scanned area was skull [...] Final Result from Last 3 Months Insurance [facility] MEDICARE ADVANTAGE [employer] [facility] MEDICARE ADVANTAGE Care Teams Field Service Technician Relationship Specialty Start Date End Date Negin Curiel NP [address] [place] [address] PCP - General Nurse Practitioner 10/06/24 Clinton Conrad III, MD PhD [address] [facility] [place] [address] Radiation Oncologist Radiation Oncology 10/02/24 Kumar Lindsey MD [address] [facility] DEPT OTOLARYNGOLOGY[address] [address] Consulting Physician Otolaryngology 10/02/24
--- OUTSIDE RECORDS SUMMARY | 2024-11-26 12:04 | XMS_ITS | Encounter Summary ---
Author Organization [facility] Address [address] [place] [address] Care Team Providers Care Pbx Teacher Name Role Phone Unavailable Primary Care Provider Unavailabl e Encounter Details Date Type Department Care Team (Late st Contact Info) Description 01/13/[address] [facility] Derm[facility] Lab [address] [place] [address] Roberto Houser MD [address] [place] [address] Social History Tobacco Use Types Packs/Day Years [...] AM CDT) Case Report Dermatopathology Report Case: [id number] Authorizing Provider: Roberto Houser MD Collected: 01/11/2022 12:00 AM Ordering Location: [facility] Received: 01/13/2022 06:30 AM Pathologist: Lachelle Montez MD Specimen: Skin, left hand 3:29 PM CDT DERMATOPATHOLOGY LABORATORY Final Diagnosis Specimen A. SKIN, left hand: BASAL CELL CARCINOMA, NODULAR TYPE (C44.619) 2 3:29 PM CDT DERMATOPATHOLOGY LABORATORY at 1529 CDT Clinical History [facility]. Path#[id number] 2 3:29 PM CDT DERMATOPATHOLOGY LABORATORY Gross [...] characteristic determined by the Dermatopathology Laboratory at [facility], directed by Dr. Eric Vega. These tests need not be, and therefore are not, approved by the [place] Food and Drug Administration. The tests are used for clinical purposes. Billing Codes Specimen Charges Stain Charges 23473 1 2 3:29 PM CDT DERMATOPATHOLOGY LABORATORY Embedded Images 2 3:29 PM CDT DERMATOPATHOLOGY LABORATORY Pathology/Cytolog y TISSUE SPECIMEN FROM SKIN / Unknown 01/11/2022 01/13/2022 6:30 AM CDT us Roberto Houser MD LAB - PATHOLOGY/CYTOLOGY ORDER PATRIA Final Result DERMATOPATHOLOGY LABORATORY [facility] - Department of Dermatology [address] [place] [address], [facility] [phone] documented in this encounter Visit Diagnoses Not on filedocumented in this encounter
--- OUTSIDE RECORDS SUMMARY | 2024-11-26 12:04 | XMS_ITS | Encounter Summary ---
Author Organization [facility] Address [address] [place] [address] Care Team Providers Care Ski Tow Operator Name Role Phone Unavailable Primary Care Provider Unavailabl e Encounter Details Date Type Department Care Team (Late st Contact Info) Description 08/25/2021 Lab Requisition [facility] [address] [place] [address] Roberto Houser MD [address] [place] [address] Social History Tobacco Use Types Packs/Day Years [...] AM CDT) Case Report Dermatopathology Report Case: [id number] Authorizing Provider: Roberto Houser MD Collected: 08/25/2021 12:00 AM Ordering Location: [facility] Received: 08/25/2021 03:35 PM Pathologist: Zena Gifford MD Specimen: Skin, right ala 1:22 PM CDT DERMATOPATHOLOGY LABORATORY Final Diagnosis Specimen A. SKIN, right ala: BASAL CELL CARCINOMA, NODULAR TYPE (C44.311) 2 1:22 PM CDT DERMATOPATHOLOGY LABORATORY at 1322 CDT Clinical History BCCA. Path# [id number] 2 1:22 PM CDT DERMATOPATHOLOGY LABORATORY Gross Description Specimen A: Received is one formalin filled container labeled with the patient's name and designated right ala. The specimen consists of a shave biopsy measuring [id number]. Jar 0. 2 1:22 PM CDT DERMATOPATHOLOGY [...] characteristic determined by the Dermatopathology Laboratory at [facility], directed by Dr. Eric Vega. These tests need not be, and therefore are not, approved by the [place] Food and Drug Administration. The tests are used for clinical purposes. Billing Codes Specimen Charges Stain Charges 45944 1 2 1:22 PM CDT DERMATOPATHOLOGY LABORATORY Embedded Images 2 1:22 PM CDT DERMATOPATHOLOGY LABORATORY Pathology/Cytolog y TISSUE SPECIMEN FROM SKIN / Unknown 08/25/2021 08/25/2021 3:35 PM CDT us Roberto Houser MD LAB - PATHOLOGY/CYTOLOGY ORDER PATRIA Final Result DERMATOPATHOLOGY LABORATORY [facility] - Department of Dermatology [address], [address] [phone] documented in this encounter Visit Diagnoses Not on filedocumented in this encounter
--- OUTSIDE RECORDS SUMMARY | 2024-11-26 12:04 | XMS_ITS | Clinical Summary ---
Author Organization [facility] [employer] Address [address] [place] [address] Care Team Providers Care Telecommunications Switch Technician Name Role Phone Unavailable Primary Care Provider Unavailabl e Source Comments [facility] [employer],non-owned Affiliates and Associated Physician Practices is amultiple site organization consisting of ambulatory clinics and hospital sitesin [place], [place], [place] and [place]. This disclosure is being madepursuant to the Care Everywhere program and may not contain all information available regarding this patient. Last updated 17.[facility] [employer] Social History Tobacco Use Types Packs/Day Years [...]
[2024-11-26 12:17] LABS: Alanine Aminotransferase 12 U/L (6-35); Albumin Level 4.0 g/dL (3.5-5.1); Alkaline Phosphatase 84 U/L (38-126); Anion Gap 7 mmol/L (4-12); Aspartate Amino Transferase 17 U/L (14-36); Bilirubin,Total 0.8 mg/dL (0.2-1.3); Blood Urea Nitrogen 16 mg/dL (7-17); Calcium 10.6 mg/dL (8.4-10.2); Carbon Dioxide 30 mmol/L (22-30); Chloride 102 mmol/L (98-107); Estimated CRCL calculation 53 ml/min; Estimated Glomerular Filt Rate > 60; Glucose 92 mg/dL (65-110); Potassium 4.3 mmol/L (3.4-5.0); Sodium 139 mmol/L (137-145); Total Protein 7.3 g/dL (6.3-8.2)
[2024-11-26 12:25] LABS: NT Pro B Type Natriuretic Pept 97 pg/mL (19.9-100)
[2024-11-26 12:39] LABS: INR 1.0; Prothrombin Time 13.3 Seconds (11.1-14.7)
[2024-11-26 12:40] LABS: Partial Thromboplastin Time 28.0 Seconds (22.3-36.8)
--- NOTE | 2024-11-26 13:18 | ED.GENADULT ---
HPI - General Adult General Chief complaint: Extremity Problem,Nontraumatic Stated complaint: Bilateral leg swelling Time Seen by Provider: 11/26/24 11:42 History of Present Illness HPI narrative: This is a [place]ic-speaking female presenting with 2 complaints. Her 1st complaint is a painful lump on her right upper extremity. Is been getting worse over last 3 days. No systemic signs of illness such as fevers chills nausea vomiting diarrhea. No surrounding erythema or redness. Second complaint is lower extremity edema. She to this is been going on for 21 days. She was seen by her kidney doctor who recommended she take Lasix daily. She has not been doing that. Her legs are unchanged. She does not have any chest pain breathing, orthopnea or dyspnea on exertion. History of congestive heart failure. Related Data Home Medications ?Medication ?Instructions ?Recorded ?Confirmed ?Last Taken ?Type atorvastatin 10 mg tablet 10 mg PO DAILY 12/27/21 12/20/22 Unknown History carvedilol 25 mg tablet 25 mg PO DAILY 12/27/21 12/20/22 Unknown History telmisartan 80 1 tablet PO DAILY 12/27/21 12/20/22 Unknown History mg-hydrochlorothiazide 25 mg tablet gabapentin 100 mg capsule 100 mg PO DIRECTED 12/20/22 12/20/22 Unknown History linaclotide 145 mcg capsule 145 mcg PO DIRECTED 12/20/22 12/20/22 Unknown History (Celinezesambar) montelukast 10 mg tablet 10 mg PO DAILY 12/20/22 12/20/22 Unknown History Allergies Allergy/AdvReac Type Severity Reaction Status Date / Time No Known Allergies Allergy Verified 11/26/24 11:22 [facility] Past Medical History Medical History Hypertension Family History Family History Other Family history of arthritis Hypertension Social History Social History Smoking status: Never smoker Alcohol intake: current Exam Narrative: APPEARANCE: No apparent distress. Head: atraumatic. EYES: EOMI, NOSE: Atraumatic NECK: Trachea midline RESPIRATORY: No increased rate of breathing clear to auscultation CARDIOVASCULAR: RRR, nonpitting edema lower extremities ABDOMINAL: Non-distended soft nontender MUSCULOSKELETAl: No obvious deformities NEURO: Alert. Moving 4/4 extremities SKIN:: Infected sebaceous cyst over the right upper extremity without cellulitic changes PSYCHIATRIC: Normal affect Course Vital Signs Vital signs: Vital Signs Temperature 98.1 F 11/26/24 11:10 Pulse Rate 64 11/26/24 11:10 Respiratory Rate 18 11/26/24 11:10 Blood Pressure 139/87 11/26/24 11:10 Pulse Oximetry 95 11/26/24 11:10 Oxygen Delivery Room Air 11/26/24 11:10 Temperature 98.1 F 11/26/24 11:10 Pulse Rate 64 11/26/24 11:10 Respiratory Rate 18 11/26/24 11:10 Blood Pressure 139/87 11/26/24 11:10 Pulse Oximetry 95 11/26/24 11:10 Oxygen Delivery Room Air 11/26/24 11:10 Procedures Abscess I/D upper extremity: Date of Incision: 11/26/24 Local Anesthetic: bupivacaine 0.25% Amount of anesthesia used (mL): 6 Technique: incised with #11 blade Amount of fluid expressed (mL): 6 Irrigation: Yes Packing used?: none I&D Results: Pus and Blood Medical Decision Making MDM Narrative Medical decision making narrative: -Course: 71-year-old female presenting with 2 complaints. First complaint is an infected sebaceous cyst on her right upper extremity. This was incised and drained. She can follow up with primary care physician. Second complaint is lower extremity edema. This is been ongoing for several weeks. She is already prescribed Lasix by her product planner and has not been taking it. She has been instructed to take her Lasix and follow up with her product planner. Screening lab work and chest x-ray are were obtained and sure that this was not a CHF exacerbation in the chest x-ray is clear and her BNP is less than 100. Kidney function is at baseline. DVT less likely as it is bilateral and symmetric. Patient will be discharged follow-up with her product planner. -DDX includes but is not limited to: Acted sebaceous cyst, abscess, lymphedema, dependent edema, CHF, kidney failure Vital Signs Vital Signs: Vital Signs Temperature 98.1 F 11/26/24 11:10 Pulse Rate 64 11/26/24 11:10 Respiratory Rate 18 11/26/24 11:10 Blood Pressure 139/87 11/26/24 11:10 Pulse Oximetry 95 11/26/24 11:10 Oxygen Delivery Room Air 11/26/24 11:10 Temperature 98.1 F 11/26/24 11:10 Pulse Rate 64 11/26/24 11:10 Respiratory Rate 18 11/26/24 11:10 Blood Pressure 139/87 11/26/24 11:10 Pulse Oximetry 95 11/26/24 11:10 Oxygen Delivery Room Air 11/26/24 11:10 Lab Data 11/26/24 11:48 11/26/24 11:48 Labs: Lab Results 11/26/24 Range/Units 11:48 WBC 6.4 (4.5-10.0) K/mm3 RBC 4.45 (4.2-5.4) M/mm3 Hgb 12.7 (12.0-15.0) g/dL Hct 41.6 (37.0-47.0) % MCV 93.5 (80-100) fl MCH 28.5 (26-34) pg MCHC 30.5 L (32-36) g/dl RDW 13.2 (11.5-14.5) % Plt Count 215 (150-375) k/mm3 MPV 9.8 (7.4-10.4) fl Immature Gran % (Auto) 0.5 (0-0.5) % Neut % (Auto) 58.5 (45.5-73.1) % Lymph % (Auto) 25.8 (18.3-44.2) % [place] % (Auto) 11.4 H (2.6-8.5) % Eos % (Auto) 3.0 (0-4.4) % Baso % (Auto) 0.8 (0.2-1.2) % Lymph # (Auto) 1.66 (0.9-3.2) K/mm3 [place] # (Auto) 0.7 H (0.1-0.6) K/mm3 Eos # (Auto) 0.2 (0-0.3) K/mm3 Baso # (Auto) 0.1 (0.0-0.1) K/mm3 Abs Immat Gran (auto) 0.03 (0.00-0.031) K/mm3 Absolute Neuts (auto) 3.8 (1.3-6.7) K/mm3 Absolute Nucleated RBC 0.000 (0.0-0.012) K/mm3 Nucleated RBC % 0.0 (0.0-0.2) % PT 13.3 (11.1-14.7) Seconds INR 1.0 APTT 28.0 (22.3-36.8) Seconds Sodium 139 (137-145) mmol/L Potassium 4.3 (3.4-5.0) mmol/L Chloride 102 (98-107) mmol/L Carbon Dioxide 30 (22-30) mmol/L Anion Gap 7 (4-12) mmol/L BUN 16 D (7-17) mg/dL Creatinine 0.87 (0.7-1.0) mg/dL Estim Creat Clear Calc 53 ml/min Estimated GFR > 60 (59 - ) Glucose 92 (65-110) mg/dL Calcium 10.6 H (8.4-10.2) mg/dL Total Bilirubin 0.8 (0.2-1.3) mg/dL AST 17 (14-36) U/L ALT 12 (6-35) U/L Alkaline Phosphatase 84 (38-126) U/L NT-Pro-B Natriuret Pep 97 (19.9-100) pg/mL Total Protein 7.3 (6.3-8.2) g/dL Albumin 4.0 (3.5-5.1) g/dL Discharge Plan Discharge Clinical Impression: Infected sebaceous cyst, Edema of both lower legs Patient Disposition: Home Condition: Stable Instructions: Antibiotic Form, Abscess (ED), Edema (ED) Additional Instructions: Please follow-up with your primary care physician product planner for further management. If the cyst is returning a may need to be drained again. This can be performed by her primary care physician. Please resume taking your Lasix which was prescribed by her product planner. If you develop chest pain shortness of breath or worsening swelling her legs return emergency department for re-evaluation. Por favor, consulte con white m?dico de cabecera o nefr?logo para recibir m?s tratamiento. Si el quiste reaparece, es posible que sea necesario drenar el quiste. [place] puede ser realizado por white m?dico de cabecera. Por favor, reanude el tratamiento con Lasix, recetado por white nefr?logo. Si presenta dolor en el pecho, dificultad para respirar o empeoramiento de la hinchaz?n en las piernas, acuda a urgencias para jules reevaluaci?n. Patient Language: Icelandic Prescriptions: No Action montelukast 10 mg tablet 10 mg PO DAILY gabapentin 100 mg capsule 100 mg PO DIRECTED Linzess 145 mcg capsule 145 mcg PO DIRECTED ciprofloxacin HCl [Cipro] 500 mg tablet 500 mg PO Q12H 7 Days Qty: 14 0RF carvedilol 25 mg tablet 25 mg PO DAILY atorvastatin 10 mg tablet 10 mg PO DAILY telmisartan-hydrochlorothiazid 80-25 mg tablet 1 tablet PO DAILY polyethylene glycol 3350 [Miralax] 17 gram/dose powder 17 g PO DAILY 4 Days Qty: 68 0RF docusate sodium [Colace] 100 mg capsule 100 mg PO DAILY Qty: 30 0RF cefdinir 300 mg capsule 300 mg PO Q12H 7 Days Qty: 14 0RF Follow-up/Referrals: Veena,JOSE Kam [Primary Care Provider] - 1 Week
== END 2024-11-26 13:45 | disposition home or self-care (01) ==
PROVIDERS: Physician Assistant; Emergency Provider Emergency Medicine; PCP Registered Nurse
DX: L72.3 Sebaceous cyst (principal); R60.0 Localized edema; I11.0 Hypertensive heart disease with heart failure; I50.9 Heart failure, unspecified
CPT/HCPCS: 10060; 36415; 71046; 80053; 83880; 85025; 85610; 85730; 99283